=== PATIENT | male | born 1995 | race Two or more races ===

== ENCOUNTER 2025-04-01 22:18 | Emergency (ER) | payer OTHER ==
[~2025-04-01] VITALS: Ht 167.6 cm; Wt 74.8 kg
[2025-04-01] MEDS ORDERED: IBUPROFEN 400 MG TABLET ONE (22:59)
[2025-04-01] MEDS: IBUPROFEN 400 MG TABLET PO ONE (23:02)
[2025-04-02 02:16] VITALS: BP 148/89; TEMP 97.6; O2SAT 99
== END 2025-04-02 02:16 ==
LOC: ER 22:39
DX: M79.642 Pain in left hand (principal)
CPT/HCPCS: 73130-TC